=== PATIENT | female | born 1965 | race American Indian/Alaskan Native ===

== ENCOUNTER 2021-05-05 19:40 | Emergency (ER) | payer SELFPAY ==
--- NOTE | 2021-05-05 21:10 | Emergency Department Report ---
ED General Adult HPI - General Stated complaint: NERVE PAIN PUI?: No Source: patient Mode of arrival: Ambulatory Limitations: No Limitations - History of Present Illness Initial comments: Patient is a 55-year-old -Serbian female with a history of azn-bvubene-mxodlivuv diabetes, chronic neck and back pain and hypertension who presents to the ED with complaint of acute onset persistent neck pain that radiates to the bilateral arms with tingling sensation as well as low back pain that radiates to the lower extremities bilaterally with tingling sensation for the last 1 week, worse in the last 2 days. Patient states that her job involves being on her feet all day and that at the end of the day her pain is worse and that she is unable to sleep because of persistent tingling of her upper and lower extremities bilaterally. Patient states that she was initially evaluated by her primary care physician 3 days ago and had x-ray of her neck and which revealed chronic degenerative cervical disc disease. Patient states that she is currently taking [id number] Tylenol with no relief. Patient denies chest pain, shortness of breath, nausea, vomiting, cough, dizziness, syncope, abdominal pain, traumatic injury, heavy lifting, bilateral upper and lower extremity weaknesses, change in vision or headache. MD Complaint: Neck pain, bilateral arm tingling; Low back pain and tingling of legs -: Gradual, month(s) (6) Location: neck, back (lower back), upper extremity (bilateral tingling), lower extremity (bilateral leg) Radiation: extremity (bilateral lower extremities, bilateral arm tingling) Severity scale (0 -10): 7 Quality: aching, sharp Consistency: constant Improves with: none Worsens with: movement Associated Symptoms: denies other symptoms. denies: confusion, chest pain, cough, diaphoresis, fever/chills, headaches, loss of appetite, malaise, nausea/vomiting, rash, seizure, shortness of breath, syncope, weakness Treatments Prior to Arrival: none - Related Data Previous Rx's Medication Instructions Recorded Last Taken Type Baclofen 20 mg PO Q12H PRN #30 tablet 05/05/21 Unknown Rx Gabapentin 300 mg PO BID #60 cap 05/05/21 Unknown Rx Ibuprofen [Motrin] 800 mg PO Q8HR PRN #30 tablet 05/05/21 Unknown Rx traMADoL [Ultram] 50 mg PO Q6HR PRN #12 tablet 05/05/21 Unknown Rx Allergies Allergy/AdvReac Type Severity Reaction Status Date / Time No Known Allergies Allergy Unverified 05/05/21 20:35 ED Review of Systems ROS: Stated complaint: NERVE PAIN Other details as noted in HPI Constitutional: denies: chills, fever Eyes: denies: eye pain, eye discharge, vision change ENT: denies: ear pain, throat pain Respiratory: denies: cough, shortness of breath, wheezing Cardiovascular: denies: chest pain, palpitations Endocrine: no symptoms reported Gastrointestinal: denies: abdominal pain, nausea, diarrhea Genitourinary: denies: urgency, dysuria, discharge Musculoskeletal: back pain (Low back pain), arthralgia (Neck pain), other (Bilateral upper and lower extremity tingling sensations). denies: joint swelling Skin: denies: rash, lesions Neurological: denies: headache, weakness, paresthesias Psychiatric: denies: anxiety, depression Hematological/Lymphatic: denies: easy bleeding, easy bruising ED Past Medical Hx - Past Medical History Hx Diabetes: Yes Additional medical history: Chronic pain syndrome; chronic cervical radiculopathy; chronic lumbar radiculopathy - Medications Home Medications: Home Medications Medication Instructions Recorded Confirmed Last Taken Type Baclofen 20 mg PO Q12H PRN #30 tablet 05/05/21 Unknown Rx Gabapentin 300 mg PO BID #60 cap 05/05/21 Unknown Rx Ibuprofen [Motrin] 800 mg PO Q8HR PRN #30 tablet 05/05/21 Unknown Rx traMADoL [Ultram] 50 mg PO Q6HR PRN #12 tablet 05/05/21 Unknown Rx ED Physical Exam - General General appearance: alert, in no apparent distress - Head Head exam: Present: atraumatic, normocephalic, normal inspection - Eye Eye exam: Present: normal appearance, PERRL, EOMI Pupils: Present: normal accommodation - ENT ENT exam: Present: normal exam, normal orophraynx, mucous membranes moist, TM's normal bilaterally, normal external ear exam - Neck Neck exam: Present: normal inspection, tenderness (Palpable cervical paraspinal musculoskeletal tenderness), full ROM - Respiratory Respiratory exam: Present: normal lung sounds bilaterally. Absent: respiratory distress, wheezes, rhonchi, stridor, chest wall tenderness, accessory muscle use, decreased breath sounds, prolonged expiratory - Cardiovascular Cardiovascular Exam: Present: regular rate, normal rhythm, normal heart sounds. Absent: systolic murmur, diastolic murmur, rubs, gallop - GI/Abdominal GI/Abdominal exam: Present: soft, normal bowel sounds. Absent: tenderness, hyperactive bowel sounds, organomegaly - Extremities Exam Extremities exam: Present: normal inspection, full ROM, normal capillary refill. Absent: tenderness - Back Exam Back exam: Present: normal inspection, full ROM, tenderness (Palpable lumbosacral paraspinal musculoskeletal tenderness), muscle spasm, paraspinal tenderness. Absent: vertebral tenderness - Neurological Exam Neurological exam: Present: alert, oriented X3, CN II-XII intact, normal gait, reflexes normal - Psychiatric Psychiatric exam: Present: normal affect, normal mood - Skin Skin exam: Present: warm, dry, intact, normal color. Absent: rash ED Course Vital Signs 05/05/21 20:20 Temperature 98.3 F Pulse Rate 97 H Respiratory 18 Rate Blood Pressure 152/86 O2 Sat by Pulse 98 Oximetry ED Medical Decision Making - Medical Decision Making This is a 55-year-old -Serbian female with a history of trx-fuuhdhj-dl pendent diabetes, chronic neck and back pain and hypertension who presents to the ED with complaint of acute onset persistent neck pain that radiates to the bilateral arms with tingling sensation as well as low back pain that radiates to the lower extremities bilaterally with tingling sensation for the last 1 week, worse in the last 2 days. Patient states that her job involves being on her feet all day and that at the end of the day her pain is worse and that she is unable to sleep because of persistent tingling of her upper and lower extremities bilaterally. Patient states that she was initially evaluated by her primary care physician 3 days ago and had x-ray of her neck and which revealed chronic degenerative cervical disc disease. Patient states that she is currently taking [id number] Tylenol with no relief. In the ED, patient is alert and oriented x3 and is not in any distress. Based on the history and physical exam findings, the patient symptoms are likely due to cervical and lumbar radiculopathy as well as muscle spasm. Patient was therefore discharged home on medications for pain and muscle relaxants and was advised to follow-up with her primary care physician in 5 to 7 days for reevaluation. Patient is advised to return to the ED immediately if symptoms get worse. - Differential Diagnosis Cervical radiculopathy; lumbar radiculopathy; muscle spasm; muscle strain Critical care attestation.: If time is entered above; I have spent that time in minutes in the direct care of this critically ill patient, excluding procedure time. ED Disposition Clinical Impression: Cervical radiculopathy, Spasm of muscle of lower back Chronic low back pain with bilateral sciatica Qualifiers: Back pain laterality: bilateral Qualified Code(s): M54.42 - Lumbago with sciatica, left side Disposition: HOME / SELF CARE / HOMELESS Is pt being admited?: No Does the pt Need Aspirin: No Condition: Stable Instructions: Muscle Cramps and Spasms, Yeku-bl-Nhdl, Chronic Back Pain, Ajlj-tx-Kotd, Cervical Radiculopathy, Oqhj-dc-Wgid, Sciatica Rehab-SportsMed Additional Instructions: Your symptoms are likely due to cervical and lumbar radiculopathy in addition to muscle spasm. Therefore take medication with food, drink plenty of fluids and follow-up with your primary care physician in 5 to 7 days for reevaluation. Return to the ED immediately if symptoms get worse. Prescriptions: Baclofen 20 mg PO Q12H PRN #30 tablet PRN Reason: Muscle Spasm Gabapentin 300 mg PO BID #60 cap Ibuprofen [Motrin] 800 mg PO Q8HR PRN #30 tablet PRN Reason: Pain , Severe (7-10) traMADoL [Ultram] 50 mg PO Q6HR PRN #12 tablet PRN Reason: Pain Referrals: [facility] [Provider Group] - 3-5 Days Time of Disposition: 21:11 Print Language: SINHALA
[2021-05-05 21:14] VITALS: BP 152/86
== END 2021-05-05 21:41 | disposition home or self-care (01) ==
LOC: ED 19:40
DX: M54.12 Radiculopathy, cervical region (principal); M62.830 Muscle spasm of back; M54.41 Lumbago with sciatica, right side; E11.9 Type 2 diabetes mellitus without complications; Z79.899 Other long term (current) drug therapy
CPT/HCPCS: 99282

== ENCOUNTER 2021-07-17 16:04 | Emergency (ER) | payer SELFPAY ==
--- NOTE | 2021-07-17 17:44 | Emergency Department Report ---
ED ENT HPI - General Chief complaint: Dental/Oral Stated complaint: TOOTH PAIN Time Seen by Provider: 07/17/21 17:26 Source: patient Mode of arrival: Ambulatory Limitations: No Limitations - History of Present Illness MD complaint: tooth pain -: Gradual, week(s) (1 and worsen over the last) Location: tooth # 1 - Pain and throbbing to this region with adjacent gingival swelling all on the lateral aspect Severity: moderate, severe Quality: dull Consistency: constant Worsens with: eating, movement Context- Dental: history of dental caries, poor dental care Associated Symptoms: gum swelling, toothache. denies: pain with swallowing, sore throat, tinnitus, discharge from ear, rhinorrhea - Related Data Previous Rx's Medication Instructions Recorded Last Taken Type Baclofen 20 mg PO Q12H PRN #30 tablet 05/05/21 Unknown Rx Gabapentin 300 mg PO BID #60 cap 05/05/21 Unknown Rx Ibuprofen [Motrin] 800 mg PO Q8HR PRN #30 tablet 05/05/21 Unknown Rx traMADoL [Ultram] 50 mg PO Q6HR PRN #12 tablet 05/05/21 Unknown Rx Amoxicillin [Amoxicillin TAB] 875 mg PO BID #20 tablet 07/17/21 Unknown Rx Chlorhexidine Mouthwash [Peridex] 15 ml MM BID #1 bottle 07/17/21 Unknown Rx HYDROcodone/APAP 10-325 [[place] 1 each PO Q6HR PRN #20 tablet 07/17/21 Unknown Rx 10/325] Lidocaine Viscous 2% 5 ml MM Q3H PRN #120 udc 07/17/21 Unknown Rx traMADoL [Ultram] 50 mg PO Q6HR PRN #20 tablet 07/17/21 Unknown Rx Allergies Allergy/AdvReac Type Severity Reaction Status Date / Time No Known Allergies Allergy Verified 07/17/21 16:09 ED Dental HPI - General Chief complaint: Dental/Oral Stated complaint: TOOTH PAIN Time Seen by Provider: 07/17/21 17:26 Source: patient Mode of arrival: Ambulatory Limitations: No Limitations - Related Data Previous Rx's Medication Instructions Recorded Last Taken Type Baclofen 20 mg PO Q12H PRN #30 tablet 05/05/21 Unknown Rx Gabapentin 300 mg PO BID #60 cap 05/05/21 Unknown Rx Ibuprofen [Motrin] 800 mg PO Q8HR PRN #30 tablet 05/05/21 Unknown Rx traMADoL [Ultram] 50 mg PO Q6HR PRN #12 tablet 05/05/21 Unknown Rx Amoxicillin [Amoxicillin TAB] 875 mg PO BID #20 tablet 07/17/21 Unknown Rx Chlorhexidine Mouthwash [Peridex] 15 ml MM BID #1 bottle 07/17/21 Unknown Rx HYDROcodone/APAP 10-325 [[place] 1 each PO Q6HR PRN #20 tablet 07/17/21 Unknown Rx 10/325] Lidocaine Viscous 2% 5 ml MM Q3H PRN #120 udc 07/17/21 Unknown Rx traMADoL [Ultram] 50 mg PO Q6HR PRN #20 tablet 07/17/21 Unknown Rx Allergies Allergy/AdvReac Type Severity Reaction Status Date / Time No Known Allergies Allergy Verified 07/17/21 16:09 ED Review of Systems ROS: Stated complaint: TOOTH PAIN Other details as noted in HPI Comment: All other systems reviewed and negative ED Past Medical Hx - Past Medical History Hx Diabetes: Yes Additional medical history: Chronic pain syndrome; chronic cervical radiculopathy; chronic lumbar radiculopathy - Medications Home Medications: Home Medications Medication Instructions Recorded Confirmed Last Taken Type Baclofen 20 mg PO Q12H PRN #30 tablet 05/05/21 Unknown Rx Gabapentin 300 mg PO BID #60 cap 05/05/21 Unknown Rx Ibuprofen [Motrin] 800 mg PO Q8HR PRN #30 tablet 05/05/21 Unknown Rx traMADoL [Ultram] 50 mg PO Q6HR PRN #12 tablet 05/05/21 Unknown Rx Amoxicillin [Amoxicillin TAB] 875 mg PO BID #20 tablet 07/17/21 Unknown Rx Chlorhexidine Mouthwash [Peridex] 15 ml MM BID #1 bottle 07/17/21 Unknown Rx HYDROcodone/APAP 10-325 [[place] 1 each PO Q6HR PRN #20 tablet 07/17/21 Unknown Rx 10/325] Lidocaine Viscous 2% 5 ml MM Q3H PRN #120 udc 07/17/21 Unknown Rx traMADoL [Ultram] 50 mg PO Q6HR PRN #20 tablet 07/17/21 Unknown Rx ED Physical Exam - General Limitations: No Limitations General appearance: alert, in no apparent distress - Head Head exam: Present: atraumatic, normocephalic - Eye Eye exam: Present: normal appearance - ENT ENT exam: Present: mucous membranes moist, other (The disused a dental caries throughout with pain when palpating tooth #30 and 31 there is adjacent gingival swelling which gives a strong suspicion for a gingival abscess. No evidence of any peritonsillar abscess airway is patent tongue and uvula midline no drooling and normal voice.) - Neck Neck exam: Present: normal inspection, full ROM. Absent: tenderness, meningismus, lymphadenopathy - Respiratory Respiratory exam: Present: normal lung sounds bilaterally. Absent: respiratory distress, wheezes, accessory muscle use, decreased breath sounds, prolonged expiratory - Cardiovascular Cardiovascular Exam: Present: regular rate, normal rhythm. Absent: systolic murmur, diastolic murmur, rubs, gallop - GI/Abdominal GI/Abdominal exam: Present: soft, normal bowel sounds - Extremities Exam Extremities exam: Present: normal inspection, normal capillary refill - Back Exam Back exam: Present: normal inspection. Absent: CVA tenderness (R), CVA tenderness (L) - Neurological Exam Neurological exam: Present: alert, oriented X3, CN II-XII intact - Psychiatric Psychiatric exam: Present: normal affect, normal mood - Skin Skin exam: Present: warm, dry, intact, normal color. Absent: rash ED Course Vital Signs 07/17/21 16:06 Temperature 98 F Pulse Rate 100 H Respiratory 18 Rate Blood Pressure 148/83 [Right] O2 Sat by Pulse 100 Oximetry ED Medical Decision Making - Medical Decision Making This 56-year-old female with past medical history of chronic recurrent dental infection and dental caries with no history of any compromised nontoxic appearance patient is euvolemic with no trismus no airway compromise unable to tolerate p.o. given history and examination low suspicion for this presentation being caused by peritonsillar abscess, Yuri, bacterial tracheitis, acute HIV, epiglottitis, retropharyngeal abscess. Critical care attestation.: If time is entered above; I have spent that time in minutes in the direct care of this critically ill patient, excluding procedure time. ED Disposition Clinical Impression: Dental abscess Disposition: HOME / SELF CARE / HOMELESS Is pt being admited?: No Does the pt Need Aspirin: No Condition: Stable Instructions: Dental Abscess Prescriptions: Amoxicillin [Amoxicillin TAB] 875 mg PO BID #20 tablet Lidocaine Viscous 2% 5 ml MM Q3H PRN #120 udc PRN Reason: Pain, Moderate (4-6) HYDROcodone/APAP 10-325 [[place] 10/325] 1 each PO Q6HR PRN #20 tablet PRN Reason: Pain Chlorhexidine Mouthwash [Peridex] 15 ml MM BID #1 bottle traMADoL [Ultram] 50 mg PO Q6HR PRN #20 tablet PRN Reason: Pain Referrals: [facility] [Outside] - 3-5 Days
[2021-07-17 18:03] VITALS: BP 157/82
== END 2021-07-17 18:31 | disposition home or self-care (01) ==
LOC: ED 16:04
DX: K04.7 Periapical abscess without sinus (principal); E11.9 Type 2 diabetes mellitus without complications; G89.29 Other chronic pain; Z79.899 Other long term (current) drug therapy
CPT/HCPCS: 99282

== ENCOUNTER 2021-11-14 17:13 | Emergency (ER) | payer SELFPAY ==
[2021-11-14 17:22] VITALS: BP 146/81
[2021-11-14] MEDS ORDERED: ONDANSETRON 4 MG ODT TAB PO ONE (18:05)
[2021-11-14] MEDS ORDERED: oxyCODONE /ACETAMINOPHEN 5-325MG TAB PO ONE (18:05)
[2021-11-14] MEDS ORDERED: KETOROLAC 60 MG/2 ML INJ IM ONE (18:05)
--- NOTE | 2021-11-14 18:10 | Emergency Department Report ---
ED General Adult HPI - General Chief complaint: Dental/Oral Stated complaint: BACK PAIN Time Seen by Provider: 11/14/21 17:35 Source: patient Mode of arrival: Ambulatory Limitations: No Limitations - History of Present Illness Initial comments: 56-year-old -[place] female patient with history of diabetes presents with complaints of right lower dental pain x4 days and chronic back pain x1 year. Patient was seen here for the same back pain 05/05/2021. She states the pain radiates down her right leg. Patient reports history of a protruding disc and states she is currently not following with a PCP. OTC pain medications or not helping per patient. She also has not seen a dentist for her dental pain. No dysphagia, chest pain, shortness of breath, cough, fever/chills/sweats or history of cancer per patient. NKDA per patient Severity scale (0 -10): 8 - Related Data Previous Rx's Medication Instructions Recorded Last Taken Type Baclofen 20 mg PO Q12H PRN #30 tablet 05/05/21 Unknown Rx Gabapentin 300 mg PO BID #60 cap 05/05/21 Unknown Rx Ibuprofen [Motrin] 800 mg PO Q8HR PRN #30 tablet 05/05/21 Unknown Rx traMADoL [Ultram] 50 mg PO Q6HR PRN #12 tablet 05/05/21 Unknown Rx Amoxicillin [Amoxicillin TAB] 875 mg PO BID #20 tablet 07/17/21 Unknown Rx Chlorhexidine Mouthwash [Peridex] 15 ml MM BID #1 bottle 07/17/21 Unknown Rx HYDROcodone/APAP 10-325 [[place] 1 each PO Q6HR PRN #20 tablet 07/17/21 Unknown Rx 10/325] Lidocaine Viscous 2% 5 ml MM Q3H PRN #120 udc 07/17/21 Unknown Rx traMADoL [Ultram] 50 mg PO Q6HR PRN #20 tablet 07/17/21 Unknown Rx Acetaminophen/Codeine [Tylenol 1 tab PO Q6H PRN #12 tab 11/14/21 Unknown Rx /Codeine # 3 tab] Clindamycin [Clindamycin CAP] 300 mg PO Q6H 10 Days #40 cap 11/14/21 Unknown Rx Naproxen 500 mg PO BID PRN #20 tab 11/14/21 Unknown Rx methocarbamoL [Methocarbamol] 750 - 1,500 mg PO TID PRN #30 tab 11/14/21 Unknown Rx Allergies Allergy/AdvReac Type Severity Reaction Status Date / Time No Known Allergies Allergy Verified 07/17/21 16:09 ED Review of Systems ROS: Stated complaint: BACK PAIN Other details as noted in HPI ED Past Medical Hx - Past Medical History Hx Diabetes: Yes Additional medical history: Chronic pain syndrome; chronic cervical radiculopathy; chronic lumbar radiculopathy - Medications Home Medications: Home Medications Medication Instructions Recorded Confirmed Last Taken Type Baclofen 20 mg PO Q12H PRN #30 tablet 05/05/21 Unknown Rx Gabapentin 300 mg PO BID #60 cap 05/05/21 Unknown Rx Ibuprofen [Motrin] 800 mg PO Q8HR PRN #30 tablet 05/05/21 Unknown Rx traMADoL [Ultram] 50 mg PO Q6HR PRN #12 tablet 05/05/21 Unknown Rx Amoxicillin [Amoxicillin TAB] 875 mg PO BID #20 tablet 07/17/21 Unknown Rx Chlorhexidine Mouthwash [Peridex] 15 ml MM BID #1 bottle 07/17/21 Unknown Rx HYDROcodone/APAP 10-325 [[place] 1 each PO Q6HR PRN #20 tablet 07/17/21 Unknown Rx 10/325] Lidocaine Viscous 2% 5 ml MM Q3H PRN #120 udc 07/17/21 Unknown Rx traMADoL [Ultram] 50 mg PO Q6HR PRN #20 tablet 07/17/21 Unknown Rx Acetaminophen/Codeine [Tylenol 1 tab PO Q6H PRN #12 tab 11/14/21 Unknown Rx /Codeine # 3 tab] Clindamycin [Clindamycin CAP] 300 mg PO Q6H 10 Days #40 cap 11/14/21 Unknown Rx Naproxen 500 mg PO BID PRN #20 tab 11/14/21 Unknown Rx methocarbamoL [Methocarbamol] 750 - 1,500 mg PO TID PRN #30 tab 11/14/21 Unknown Rx ED Physical Exam - General Limitations: No Limitations General appearance: alert, in no apparent distress - Head Head exam: Present: atraumatic, normocephalic - Eye Eye exam: Present: normal appearance. Absent: scleral icterus - Expanded ENT Exam Expanded Mouth exam: Absent: drooling, trismus, muffled voice Teeth exam: Present: dental caries 1 - Dental Tenderness (With moderate overlying facial swelling without cellulitic changes noted; deep dental caries noted in the area) Throat exam: Positive: normal inspection - Neck Neck exam: Present: normal inspection - Respiratory Respiratory exam: Present: normal lung sounds bilaterally - Cardiovascular Cardiovascular Exam: Present: regular rate - Back Exam Back exam: Present: full ROM, paraspinal tenderness (lower lumbar ). Absent: vertebral tenderness - Expanded Back Exam Expanded Back exam: Absent: saddle anesthesia Back exam: Sciatic Notch Tenderness: Right - Neurological Exam Neurological exam: Present: alert, oriented X3, normal gait. Absent: motor sensory deficit - Psychiatric Psychiatric exam: Present: normal affect, normal mood - Skin Skin exam: Present: warm, dry, intact, normal color. Absent: rash ED Course Vital Signs 11/14/21 17:17 Temperature 98.1 F Pulse Rate 98 H Respiratory 18 Rate Blood Pressure 146/81 [Right] O2 Sat by Pulse 98 Oximetry ED Medical Decision Making - Medical Decision Making 56-year-old -[place] female patient with history of diabetes presents with complaints of right lower dental pain x4 days and chronic back pain x1 year. Patient was seen here for the same back pain 05/05/2021. She states the pain radiates down her right leg. Patient reports history of a protruding disc and states she is currently not following with a PCP. OTC pain medications or not helping per patient. She also has not seen a dentist for her dental pain. No dysphagia, chest pain, shortness of breath, cough, fever/chills/sweats or history of cancer per patient. NKDA per patient CLinda given for dental infection along with dental referral. Pt instructed to f/u within 3-5 days. Back pain is chronic, will treat with nsaidds and muscle relaxers. PCP referral given. Pt is non-toxic appearing and stable for d/c home. Strict return precautions were discussed in detail with pt who verbalizes understanding. Critical care attestation.: If time is entered above; I have spent that time in minutes in the direct care of this critically ill patient, excluding procedure time. ED Disposition Clinical Impression: Dental abscess, Chronic back pain Disposition: / SELF CARE / HOMELESS Is pt being admited?: No Condition: Stable Instructions: Dental Abscess, Onfu-vi-Yagn, Chronic Back Pain Prescriptions: Clindamycin [Clindamycin CAP] 300 mg PO Q6H 10 Days #40 cap methocarbamoL [Methocarbamol] 750 - 1,500 mg PO TID PRN #30 tab PRN Reason: muscle spasm/tightness Naproxen 500 mg PO BID PRN #20 tab PRN Reason: Pain, Moderate (4-6) Acetaminophen/Codeine [Tylenol /Codeine # 3 tab] 1 tab PO Q6H PRN #12 tab PRN Reason: Pain , Severe (7-10) Referrals: [facility] [Provider Group] - 3-5 Days [facility] [Outside] - 3-5 Days [facility] [Outside] - 3-5 Days Forms: Work/School Release Form(ED)
== END 2021-11-14 18:41 | disposition home or self-care (01) ==
LOC: ED 17:13
DX: K04.7 Periapical abscess without sinus (principal); M54.9 Dorsalgia, unspecified; G89.29 Other chronic pain; E11.8 Type 2 diabetes mellitus with unspecified complications
CPT/HCPCS: 96372; 99282; J1885; J3490; Q0162

== ENCOUNTER 2021-12-12 09:41 | Outpatient (CLI) | payer OTHER ==
--- NOTE | 2021-12-12 11:45 | Magnetic Resonance Report ---
MRI CERVICAL SPINE WITHOUT CONTRAST INDICATION / CLINICAL INFORMATION: G95.9 MYELOPATHY, NECK PAIN AND NUBNESS. TECHNIQUE: Multisequence, multiplanar images of the cervical spine were obtained. COMPARISON: None available. FINDINGS: CRANIOCERVICAL JUNCTION:No significant abnormality. ALIGNMENT: There is straightening of the normal lordosis. No subluxation. VERTEBRAE:Normal marrow signal and vertebral body height for age. DISCS: There is mild diffuse disc desiccation and disc space narrowing. VISUALIZED SPINAL CORD: No significant abnormality. [id number] ANALYSIS: C2-3: No significant disc abnormality, spinal canal stenosis, or neural foraminal stenosis. C3-4: There is moderate posterior and bilateral uncovertebral spurring. There is mild central canal n arrowing measuring 7.6 mm in AP dimension. Uncovertebral spurring is more pronounced on the right raheem e. There is mild left neural foraminal narrowing and moderate right neural foraminal narrowing. C4-5: There is moderate posterior and bilateral uncovertebral spurring. There is mild central canal n arrowing measuring 7.1 mm in AP dimension. The right side is slightly more affected. There is moderat e bilateral neural foraminal narrowing. C5-6: There is mild posterior and bilateral uncovertebral spurring. Mild bilateral neural foraminal n arrowing. C6-7: There is mild posterior and bilateral uncovertebral spurring. Mild bilateral neural foraminal n arrowing. C7-T1: No significant disc abnormality, spinal canal stenosis, or neural foraminal stenosis. PARASPINAL SOFT TISSUES: No significant abnormality. ADDITIONAL FINDINGS: None. IMPRESSION: Moderate cervical spondylosis as described above. C3-4 and C4-5 appear to be the most affected levels . See above. Straightening of the normal lordosis. No acute osseous injury or herniation is detected. Signer Name: Eliceo Anderson Jr, MD Signed: 12/12/2021 11:39 AM Workstation Name: [id number]
--- NOTE | 2021-12-12 11:49 | Magnetic Resonance Report ---
MRI LUMBAR SPINE WITHOUT CONTRAST INDICATION / CLINICAL INFORMATION: G95.9 MYELOPATHY, LOWER BACK PAIN, BILAT. LEG NUMBNESS. TECHNIQUE: Multisequence, multiplanar images of the lumbar spine were obtained. COMPARISON: None available. FINDINGS: ALIGNMENT: Normal lumbar lordosis without significant scoliosis. VERTEBRAE:Normal marrow signal and vertebral body height for age. 1.8 cm vertebral bone hemangioma is noted in L2. DISCS: There is mild disc desiccation without significant disc space narrowing. VISUALIZED SPINAL CORD: No significant abnormality. The conus terminates at the level of L1. [id number] ANALYSIS: L1-2: No significant abnormality with the disc. There is mild facet arthropathy and mild hypertrophy of the ligamentum flavum. No central canal or neural foraminal narrowing. L2-3: No significant abnormality with the disc. There is mild facet arthropathy and mild hypertrophy of the ligamentum flavum. No central canal or neural foraminal narrowing. L3-4: No significant abnormality with the disc. There is mild facet arthropathy and mild hypertrophy ligamentum flavum. No central canal or neural foraminal narrowing. L4-5: A mild to moderate posterior bulging disc is present which lateralizes to the right side. There is mild facet arthropathy and moderate to severe hypertrophy of the ligamentum flavum. There is mild central canal narrowing measuring 8 mm in AP dimension. There is mild to moderate right neural roxane inal narrowing L5-S1: No significant abnormality with the disc. There is mild facet arthropathy and mild hypertrophy ligamentum flavum. No central canal or neural foraminal narrowing. PARASPINAL SOFT TISSUES: No significant abnormality. ADDITIONAL FINDINGS: None. IMPRESSION: No acute abnormality or malalignment. Mild to moderate bulging disc which lateralizes to the right side at L4-5 with mild to moderate right neural foraminal narrowing. Mild diffuse facet arthropathy and hypertrophy ligamentum flavum. Signer Name: Eliceo Anderson Jr, MD Signed: 12/12/2021 11:45 AM Workstation Name: [id number]
== END 2021-12-12 09:42 | disposition home or self-care (01) ==
LOC: MRI 09:41
PROVIDERS: ATTEND Orthopaedic Surgery
DX: M51.36 Other intervertebral disc degeneration, lumbar region (principal); M47.816 Spondylosis without myelopathy or radiculopathy, lumbar region; M48.061 Spinal stenosis, lumbar region without neurogenic claudication; M48.02 Spinal stenosis, cervical region; G95.9 Disease of spinal cord, unspecified
CPT/HCPCS: 72141; 72148

== ENCOUNTER 2021-12-30 20:54 | Emergency (ER) | payer SELFPAY ==
[2021-12-31] MEDS ORDERED: predniSONE 20 MG TAB PO ONE (01:16)
[2021-12-31] MEDS ORDERED: HYDROcodone/ACETAMINOPHEN 5-325 MG TAB PO ONE (01:16)
[2021-12-31] MEDS ORDERED: diazePAM 5 MG TAB PO ONE (01:16)
--- NOTE | 2021-12-31 01:29 | Emergency Department Report ---
ED General Adult HPI - General Chief complaint: Headache Stated complaint: HEADACHE/NECK PAIN Source: patient Mode of arrival: Ambulatory Limitations: No Limitations - History of Present Illness Initial comments: Patient is a 56-year-old -[place] female with a history of hypertension, [id number] diabetes chronic neck and low back pain with radiculopathy who presents to the ED with complaint of acute exacerbation of her chronic neck and low back pain with headache for the last 4 days. Patient states that the pain is constant and persistent and that she is unable to sleep because of worsening pain. Patient states that the pain is typical of her chronic pain after she ran out of her medications. Patient denies dizziness, syncope, chest pain or shortness of breath, nausea and vomiting, change in vision, fall, traumatic injury, hematuria, urinary frequency and urgency, fever, chills, cough, sore throat, bilateral lower and upper extremity weakness. MD Complaint: Neck pain, low back pain and headache -: Gradual, year(s) (1) Location: head, neck, back (lower) Radiation: back (Low back pain,), neck, extremity (Upper and lower extremity pain) Severity scale (0 -10): 7 Quality: aching, sharp Consistency: intermittent Improves with: none Worsens with: movement Associated Symptoms: denies other symptoms. denies: confusion, chest pain, cough, diaphoresis, fever/chills, headaches, loss of appetite, malaise, nausea/vomiting, rash, seizure, shortness of breath, syncope, weakness, other Treatments Prior to Arrival: NSAID - Related Data Previous Rx's Medication Instructions Recorded Last Taken Type Baclofen 20 mg PO Q12H PRN #30 tablet 05/05/21 Unknown Rx Gabapentin 300 mg PO BID #60 cap 05/05/21 Unknown Rx Amoxicillin [Amoxicillin TAB] 875 mg PO BID #20 tablet 07/17/21 Unknown Rx Chlorhexidine Mouthwash [Peridex] 15 ml MM BID #1 bottle 07/17/21 Unknown Rx HYDROcodone/APAP 10-325 [Bison 1 each PO Q6HR PRN #20 tablet 07/17/21 Unknown Rx 10/325] Lidocaine Viscous 2% 5 ml MM Q3H PRN #120 udc 07/17/21 Unknown Rx traMADoL [Ultram] 50 mg PO Q6HR PRN #20 tablet 11/17/21 Unknown Rx Acetaminophen/Codeine [Tylenol 1 tab PO Q6H PRN #12 tab 11/14/21 Unknown Rx /Codeine # 3 tab] Clindamycin [Clindamycin CAP] 300 mg PO Q6H 10 Days #40 cap 11/14/21 Unknown Rx Naproxen 500 mg PO BID PRN #20 tab 11/14/21 Unknown Rx Ibuprofen [Motrin 800 MG tab] 800 mg PO Q8HR PRN #30 tablet 12/31/21 Unknown Rx methocarbamoL [Methocarbamol] 750 - 1,500 mg PO TID PRN #30 tab 12/31/21 Unknown Rx predniSONE [Deltasone] 60 mg PO QDAY #15 tab 12/31/21 Unknown Rx traMADoL [Ultram 50 MG tab] 50 mg PO Q6HR PRN #12 tablet 12/31/21 Unknown Rx Allergies Allergy/AdvReac Type Severity Reaction Status Date / Time No Known Allergies Allergy Verified 07/17/21 16:09 ED Review of Systems ROS: Stated complaint: HEADACHE/NECK PAIN Other details as noted in HPI Constitutional: denies: chills, fever Eyes: denies: eye pain, eye discharge, vision change ENT: denies: ear pain, throat pain Respiratory: denies: cough, shortness of breath, wheezing Cardiovascular: denies: chest pain, palpitations Endocrine: no symptoms reported Gastrointestinal: denies: abdominal pain, nausea, diarrhea Genitourinary: denies: urgency, dysuria, discharge Musculoskeletal: back pain (Chronic low back pain radiating to the lower extr emities bilaterally), arthralgia (Chronic neck pain radiating to the upper extremities bilaterally). denies: joint swelling Skin: denies: rash, lesions Neurological: headache. denies: weakness, paresthesias Psychiatric: denies: anxiety, depression Hematological/Lymphatic: denies: easy bleeding, easy bruising ED Past Medical Hx - Past Medical History Hx Hypertension: Yes Hx Diabetes: Yes Additional medical history: Chronic pain syndrome; chronic cervical radiculopathy; chronic lumbar radiculopathy - Medications Home Medications: Home Medications Medication Instructions Recorded Confirmed Last Taken Type Baclofen 20 mg PO Q12H PRN #30 tablet 05/05/21 Unknown Rx Gabapentin 300 mg PO BID #60 cap 05/05/21 Unknown Rx Amoxicillin [Amoxicillin TAB] 875 mg PO BID #20 tablet 07/17/21 Unknown Rx Chlorhexidine Mouthwash [Peridex] 15 ml MM BID #1 bottle 07/17/21 Unknown Rx HYDROcodone/APAP 10-325 [Bison 1 each PO Q6HR PRN #20 tablet 07/17/21 Unknown Rx 10/325] Lidocaine Viscous 2% 5 ml MM Q3H PRN #120 udc 07/17/21 Unknown Rx traMADoL [Ultram] 50 mg PO Q6HR PRN #20 tablet 07/17/21 Unknown Rx Acetaminophen/Codeine [Tylenol 1 tab PO Q6H PRN #12 tab 11/14/21 Unknown Rx /Codeine # 3 tab] Clindamycin [Clindamycin CAP] 300 mg PO Q6H 10 Days #40 cap 11/14/21 Unknown Rx Naproxen 500 mg PO BID PRN #20 tab 11/14/21 Unknown Rx Ibuprofen [Motrin 800 MG tab] 800 mg PO Q8HR PRN #30 tablet 12/31/21 Unknown Rx methocarbamoL [Methocarbamol] 750 - 1,500 mg PO TID PRN #30 tab 12/31/21 Unknown Rx predniSONE [Deltasone] 60 mg PO QDAY #15 tab 12/31/21 Unknown Rx traMADoL [Ultram 50 MG tab] 50 mg PO Q6HR PRN #12 tablet 12/31/21 Unknown Rx ED Physical Exam - General Limitations: No Limitations General appearance: alert, in no apparent distress - Head Head exam: Present: atraumatic, normocephalic, normal inspection - Eye Eye exam: Present: normal appearance, PERRL, EOMI Pupils: Present: normal accommodation - ENT ENT exam: Present: normal exam, normal orophraynx, mucous membranes moist, TM's normal bilaterally, normal external ear exam - Neck Neck exam: Present: normal inspection, tenderness (Palpable cervical paraspinal musculoskeletal tenderness), full ROM. Absent: meningismus - Respiratory Respiratory exam: Present: normal lung sounds bilaterally. Absent: respiratory distress, wheezes, rales, chest wall tenderness, accessory muscle use, prolonged expiratory - Cardiovascular Cardiovascular Exam: Present: regular rate, normal rhythm, normal heart sounds. Absent: systolic murmur, diastolic murmur, rubs, gallop - GI/Abdominal GI/Abdominal exam: Present: soft, normal bowel sounds. Absent: tenderness, guarding, rebound, hyperactive bowel sounds, hypoactive bowel sounds, organ omegaly - Extremities Exam Extremities exam: Present: normal inspection, full ROM, normal capillary refill. Absent: tenderness - Back Exam Back exam: Present: normal inspection, full ROM, tenderness (Palpable lumbosacral paraspinal musculoskeletal tenderness), muscle spasm, paraspinal tenderness. Absent: CVA tenderness (R), CVA tenderness (L), vertebral tenderness - Neurological Exam Neurological exam: Present: alert, oriented X3, CN II-XII intact, normal gait, reflexes normal - Psychiatric Psychiatric exam: Present: normal affect, normal mood - Skin Skin exam: Present: warm, dry, intact, normal color. Absent: rash ED Course Vital Signs 12/30/21 21:06 Temperature 98.5 F Pulse Rate 98 H Respiratory 16 Rate Blood Pressure 148/75 O2 Sat by Pulse 98 Oximetry ED Medical Decision Making - Medical Decision Making This is a 56-year-old -[place] female with a history of hypertension, [id number] diabetes chronic neck and low back pain with radiculopathy who presents to the ED with complaint of acute exacerbation of her chronic neck and low back pain with headache for the last 4 days. Patient states that the pain is constant and persistent and that she is unable to sleep because of worsening pain. Patient states that the pain is typical of her chronic pain after she ran out of her medications. In the ED, patient is alert and oriented x3 and is not in any distress. Patient was treated for pain in the ED and was discharged home on medications. Patient was advised to follow-up with her primary care physician in 7 to 10 days for reevaluation or return to the ED immediately if symptoms get worse. - Differential Diagnosis Cervical radiculopathy; lumbar radiculopathy; muscle spasm; chronic pain Critical care attestation.: If time is entered above; I have spent that time in minutes in the direct care of this critically ill patient, excluding procedure time. ED Disposition Clinical Impression: Chronic lumbar radiculopathy, Cervical radiculopathy, Cervicogenic headache Chronic low back pain with bilateral sciatica Qualifiers: Back pain laterality: unspecified Qualified Code(s): M54.41 - Lumbago with sciatica, right side; M54.42 - Lumbago with sciatica, left side; G89.29 - Other chronic pain Disposition: 01 HOME / SELF CARE / HOMELESS Is pt being admited?: No Does the pt Need Aspirin: No Condition: Stable Instructions: Cervical Radiculopathy, [id number], Chronic Back Pain, [id number], Sciatica Additional Instructions: Take medication with food, drink plenty of fluids and follow-up with your [facility] care physician in 7 to 10 days for reevaluation. Return to the ED immediately if symptoms get worse. Prescriptions: predniSONE [Deltasone] 60 mg PO QDAY #15 tab methocarbamoL [Methocarbamol] 750 - 1,500 mg PO TID PRN #30 tab PRN Reason: muscle spasm/tightness Ibuprofen [Motrin 800 MG tab] 800 mg PO Q8HR PRN #30 tablet PRN Reason: Pain , Severe (7-10) traMADoL [Ultram 50 MG tab] 50 mg PO Q6HR PRN #12 tablet PRN Reason: Pain Referrals: [facility] [Provider Group] - 7-10 days Time of Disposition: 01:27 Print Language: MOHAWK
[2021-12-31 02:21] VITALS: BP 142/77
== END 2021-12-31 02:22 | disposition home or self-care (01) ==
LOC: ED 20:54
DX: M54.12 Radiculopathy, cervical region (principal); M54.16 Radiculopathy, lumbar region; M54.41 Lumbago with sciatica, right side; M54.42 Lumbago with sciatica, left side; R51.9 Headache, unspecified; G89.29 Other chronic pain; I10 Essential (primary) hypertension; E11.9 Type 2 diabetes mellitus without complications; Z79.899 Other long term (current) drug therapy
CPT/HCPCS: 99281; 99282